=== PATIENT | female | born 2000 | race Caucasian/White ===

== ENCOUNTER 2018-12-20 11:49 | Inpatient (IN) | payer BC, MEDICAID ==
[~2018-12-20] VITALS: Ht 170.2 cm; Wt 102.0 kg
[2018-12-20 12:27] LABS: BASOPHILS % (AUTO) 0.3 % (0-1); EOSINOPHILS # (AUTO) 0.1 X10'3 (0-0.9); EOSINOPHILS % (AUTO) 0.5 % (0-6); HEMATOCRIT 46.5 % (35.0-45.0); HEMOGLOBIN 15.7 g/dl (12.0-16.0); LYMPHOCYTES # (AUTO) 2.6 X10'3 (1.1-4.8); LYMPHOCYTES % (AUTO) 17.3 % (21-51); MEAN CORPUSCULAR HEMOGLOBIN 29.5 PG (27.0-31.0); MEAN CORPUSCULAR HGB CONC 33.8 g/dL (33.0-36.5); MEAN CORPUSCULAR VOLUME 87.5 FL (78-98); MONOCYTES # (AUTO) 0.9 X10'3 (0-0.9); NEUTROPHILS # (AUTO) 11.2 X10'3 (1.8-7.7); NEUTROPHILS % (AUTO) 75.9 % (42-75); PLATELET COUNT 478 X10'3 (140-440); RED BLOOD COUNT 5.32 X10'6 (4.20-5.60); RED CELL DISTRIBUTION WIDTH 13.1 % (11.5-14.5); WHITE BLOOD COUNT 14.8 X10'3 (4.5-11.0)
[2018-12-20 12:30] LABS: CLARITY,URINE CLOUDY (Clear); COLOR,URINE YELLOW (Yellow); GLUCOSE, URINE NEGATIVE (Neg); KETONES,URINE NEGATIVE (Neg); LEUKOCYTE ESTERASE ,URINE NEGATIVE (Neg); NITRITES, URINE NEGATIVE (Neg); OCCULT BLOOD,URINE NEGATIVE (Neg); PH,URINE 7.5 (4.8-8.0); PROTEIN,URINE 30 mg/dl (Neg); URINE HCG NEGATIVE (NEG); UROBILINOGEN,URINE 0.2 E.U/dL (0.2-1.0)
[2018-12-20 12:32] LABS: UA COLLECTION TYPE CLN CATCH MIDSTREAM
[2018-12-20 12:42] LABS: ALANINE AMINOTRANSFERASE 121 U/L (12-78); ALBUMIN 4.3 G/DL (3.4-5.0); ALBUMIN/GLOBULIN RATIO 0.9 (1.1-1.5); ALKALINE PHOSPHATASE 190 IU/L (20-180); AMYLASE 48 U/L (25-115); ANION GAP 13 (8-16); ASPARTATE AMINO TRANSFERASE 51 U/L (10-37); BILIRUBIN,TOTAL 0.9 MG/DL (0.1-1.0); BLOOD UREA NITROGEN 11 MG/DL (7-18); CALCIUM 10.1 MG/DL (8.5-10.1); CHLORIDE 105 MMOL/L (99-107); CREATININE 0.92 MG/DL (0.40-0.90); GLUCOSE 108 MG/DL (70-104); LIPASE 64 U/L (73-393); SODIUM 142 MMOL/L (135-145); TOTAL CARBON DIOXIDE 23.8 MMOL/L (24-32); TOTAL PROTEIN 9.3 G/DL (6.4-8.2); eGFR 78 ML/MIN
[2018-12-20 12:47] LABS: MUCUS STRANDS MANY /LPF (Neg); SQUAMOUS EPITHELIAL CELL,UR MANY /LPF (FEW)
[2018-12-20 12:50] LABS: BACTERIA,URINE 2+ /HPF (Neg); RBC,URINE 0-2 /HPF (0-2)
[2018-12-20] MEDS ORDERED: glycopyrrolate 0.2mg/ml inj IV ONE (13:05)
[2018-12-20] MEDS ORDERED: metoclopramide 5 mg/ml inj IV ONE (13:05)
[2018-12-20] MEDS ORDERED: normal saline 1000ML IV soln IVB ONE ×2 (13:05)
[2018-12-20] MEDS ORDERED: diphenhydrAMINE 50 mg/ml inj IV ONE (13:05)
[2018-12-20] MEDS ORDERED: ketorolac trometh. 30mg/ml inj. IV ONE (14:10)
[2018-12-20] MEDS ORDERED: CefTRIAXone 2gm/D5W 50ml 50 ML IV ONE (14:10)
[2018-12-20] MEDS ORDERED: acetaminophen 325mg tablet PO PRN (14:40)
[2018-12-20] MEDS ORDERED: HYDROcodone/acetaminophen 10/325mg tab PO PRN (14:40)
[2018-12-20] MEDS ORDERED: HYDROcodone/acetaminophen 5mg/325mg tablet PO PRN (14:40)
[2018-12-20] MEDS ORDERED: mag hydrox/Alum hydrox/simeth 30ml oral suspension PO PRN (14:40)
[2018-12-20] MEDS ORDERED: morphine 2 MG/ML inj. syringe IV PRN ×2 (14:40)
[2018-12-20] MEDS ORDERED: magnesium hydroxide 30ml (MOM) UD suspension PO PRN (14:40)
[2018-12-20] MEDS ORDERED: ondansetron/PF 4mg/2ml inj IV PRN (14:40)
[2018-12-20] MEDS ORDERED: NO HOME MEDS (15:28)
[2018-12-20] MEDS: dextrose 5%-1/2 normal saline 1,000 ML IV SCH ×2 (16:14→18:23)
--- NOTE | 2018-12-20 17:21 | NUR ---
Called to get report on pt, put on hold for over 10 minutes with on answer.
--- NOTE | 2018-12-20 18:15 | NUR ---
Dr. Cristina paged to confirm diet orders. Awaiting callback.
--- NOTE | 2018-12-20 18:21 | NUR ---
Problems reprioritized. Patient report given, questions answered & plan of care reviewed with Prudence RN.
--- NOTE | 2018-12-20 18:35 | NUR ---
Patient in room [facility]. I have received report from Suellen MADDOX and had the opportunity to ask questions and assume patient care. Patient is resting and her dad is by her bedside.
[2018-12-20 18:42] VITALS: BP 121/71
[2018-12-20 20:00] VITALS: BP 121/71
[2018-12-20] MEDS: pantoprazole 40MG/NS 100ML BAG 100 ML IV SCH (21:01)
--- NOTE | 2018-12-20 21:14 | NUR ---
patient ambulating frequently Addendum: 12/20/18 at 2121 by Renée Sams RN Amended: Links added.
[2018-12-21] VITALS (9 sets, daily range): BP systolic 121–143; BP diastolic 58–83
[2018-12-21] MEDS: pantoprazole 40MG/NS 100ML BAG 100 ML IV SCH ×3 (01:44→11:00)
[2018-12-21 04:28] LABS: BASOPHILS % (AUTO) 0.3 % (0-1); EOSINOPHILS # (AUTO) 0.2 X10'3 (0-0.9); EOSINOPHILS % (AUTO) 2.2 % (0-6); HEMATOCRIT 39.8 % (35.0-45.0); HEMOGLOBIN 13.5 g/dl (12.0-16.0); LYMPHOCYTES # (AUTO) 3.7 X10'3 (1.1-4.8); LYMPHOCYTES % (AUTO) 36.7 % (21-51); MEAN CORPUSCULAR HGB CONC 33.8 g/dL (33.0-36.5); MEAN CORPUSCULAR VOLUME 88.8 FL (78-98); MEAN PLATELET VOLUME 7.4 FL (7.4-10.4); MONOCYTES # (AUTO) 0.9 X10'3 (0-0.9); MONOCYTES % (AUTO) 8.7 % (2-12); NEUTROPHILS # (AUTO) 5.3 X10'3 (1.8-7.7); NEUTROPHILS % (AUTO) 52.1 % (42-75); PLATELET COUNT 354 X10'3 (140-440); RED BLOOD COUNT 4.48 X10'6 (4.20-5.60); RED CELL DISTRIBUTION WIDTH 13.2 % (11.5-14.5); WHITE BLOOD COUNT 10.1 X10'3 (4.5-11.0)
[2018-12-21 04:58] LABS: ALANINE AMINOTRANSFERASE 79 U/L (12-78); ALBUMIN 3.4 G/DL (3.4-5.0); ALBUMIN/GLOBULIN RATIO 0.8 (1.1-1.5); ALKALINE PHOSPHATASE 141 IU/L (20-180); ANION GAP 11 (8-16); ASPARTATE AMINO TRANSFERASE 38 U/L (10-37); BILIRUBIN,TOTAL 0.8 MG/DL (0.1-1.0); BLOOD UREA NITROGEN 14 MG/DL (7-18); BUN/CREATININE RATIO 14.7 (6.6-38.0); CHLORIDE 106 MMOL/L (99-107); CREATININE 0.95 MG/DL (0.40-0.90); GLUCOSE 92 MG/DL (70-104); POTASSIUM 3.6 MMOL/L (3.5-5.1); SODIUM 141 MMOL/L (135-145); TOTAL CARBON DIOXIDE 24.3 MMOL/L (24-32); TOTAL PROTEIN 7.5 G/DL (6.4-8.2); eGFR 75 ML/MIN
[2018-12-21] MEDS: dextrose 5%-1/2 normal saline 1,000 ML IV SCH (06:00)
--- NOTE | 2018-12-21 06:30 | NUR ---
Patient in room [facility]. I have received report from Renée MADDOX and had the opportunity to ask questions and assume patient care.
--- NOTE | 2018-12-21 06:33 | NUR ---
Problems reprioritized. Patient report given, questions answered & plan of care reviewed with Suellen MADDOX.
[2018-12-21] MEDS ORDERED: pneumococcal 23-VAL P-sac vacc 25 mcg/0.5ml vial IMVAC ONE (10:00)
--- NOTE | 2018-12-21 10:48 | NUR ---
Problems reprioritized. Patient report given, questions answered & plan of care reviewed with Maris MADDOX.
[2018-12-21] MEDS ORDERED: FLU VACC QS 2019-20 (6 MOS UP) 60 MCG/0.5 ML VIAL IMVAC ONE (12:00)
[2018-12-21] MEDS ORDERED: MIDAZolam 5mg/5ml vial ONE (12:19)
[2018-12-21] MEDS ORDERED: LIDOcaine Viscous 15ml cup ONE (12:19)
[2018-12-21] MEDS ORDERED: fentaNYL/PF 50MCG/1 ML 2ML syringe ONE (12:19)
[2018-12-21] MEDS ORDERED: OMEP20TA23 PO (14:14)
--- NOTE | 2018-12-21 15:35 | NUR ---
PATIENT STABLE AND APPROPRIATE FOR DISCHARGE, EDUCATION GIVEN, IVS TAKEN OUT, ALL BELONGINGS SENT WITH PATIENT, PATIENT TAKEN TO LOBBY IN WHEEL CHAIR TO AN AWAITING CAR WHERE FRIEND WOULD TAKE PATIENT HOME
== END 2018-12-21 15:40 | disposition home or self-care (01) | DRG 241 ==
LOC: ER 11:50 → ED HOLD 14:37 → SUR 3N 17:57
PROVIDERS: ADMIT Internal Medicine; ATTEND Internal Medicine
PROC: 0DB48ZX Excision of Esophagogastric Junction, Via Natural or Artificial Opening Endoscopic, Diagnostic (ICD-10-PCS; principal; 2018-12-21)
PROC: 0DB68ZX Excision of Stomach, Via Natural or Artificial Opening Endoscopic, Diagnostic (ICD-10-PCS; 2018-12-21)
DX: K29.71 Gastritis, unspecified, with bleeding (principal); K80.62 Calculus of gallbladder and bile duct with acute cholecystitis without obstruction; K20.9 Esophagitis, unspecified; K46.9 Unspecified abdominal hernia without obstruction or gangrene; R74.0 Nonspecific elevation of levels of transaminase and lactic acid dehydrogenase [LDH]; R74.8 Abnormal levels of other serum enzymes; Z28.21 Immunization not carried out because of patient refusal
CPT/HCPCS: 36415; 43239; 74176; 76700; 80053; 81001; 81025; 82150; 83690; 84145; 85025; 85610; 87081; 96374; 96375; 99152; 99285; A4620; C9113; G0378; J0696; J1200; J2250; J2765; J3010; J3490; J7040; Q2037

== ENCOUNTER 2019-07-26 13:02 | Emergency (ER) | payer MEDICAID ==
[~2019-07-26] VITALS: Ht 170.2 cm; Wt 50.0 kg
[~2019-07-26 13:02] MED LIST: OMEP20TA23 PO
[2019-07-26 13:49] LABS: CLARITY,URINE CLEAR (Clear); COLOR,URINE STRAW (Yellow); GLUCOSE, URINE NEGATIVE (Neg); KETONES,URINE NEGATIVE (Neg); LEUKOCYTE ESTERASE ,URINE NEGATIVE (Neg); NITRITES, URINE NEGATIVE (Neg); OCCULT BLOOD,URINE NEGATIVE (Neg); PROTEIN,URINE NEGATIVE (Neg); UROBILINOGEN,URINE 0.2 E.U/dL (0.2-1.0)
[2019-07-26 13:50] LABS: UA COLLECTION TYPE CLN CATCH MIDSTREAM; URINE HCG NEGATIVE (NEG)
[2019-07-26 14:57] LABS: BASOPHILS # (AUTO) 0.1 X10'3 (0-0.2); BASOPHILS % (AUTO) 0.5 % (0-1); EOSINOPHILS # (AUTO) 0.1 X10'3 (0-0.9); EOSINOPHILS % (AUTO) 1.4 % (0-6); HEMATOCRIT 42.8 % (35.0-45.0); HEMOGLOBIN 14.4 g/dl (12.0-16.0); LYMPHOCYTES # (AUTO) 2.5 X10'3 (1.1-4.8); LYMPHOCYTES % (AUTO) 23.6 % (21-51); MEAN CORPUSCULAR HEMOGLOBIN 29.5 PG (27.0-31.0); MEAN CORPUSCULAR HGB CONC 33.7 g/dL (33.0-36.5); MEAN CORPUSCULAR VOLUME 87.6 FL (78-98); MEAN PLATELET VOLUME 7.7 FL (7.4-10.4); MONOCYTES # (AUTO) 0.6 X10'3 (0-0.9); MONOCYTES % (AUTO) 5.5 % (2-12); NEUTROPHILS # (AUTO) 7.2 X10'3 (1.8-7.7); PLATELET COUNT 388 X10'3 (140-440); RED BLOOD COUNT 4.88 X10'6 (4.20-5.60); RED CELL DISTRIBUTION WIDTH 12.8 % (11.5-14.5); WHITE BLOOD COUNT 10.4 X10'3 (4.5-11.0)
[2019-07-26 15:12] LABS: ALANINE AMINOTRANSFERASE 70 U/L (12-78); ALBUMIN 3.9 G/DL (3.4-5.0); ALKALINE PHOSPHATASE 144 IU/L (46-116); ANION GAP 6 (8-16); ASPARTATE AMINO TRANSFERASE 26 U/L (10-37); BILIRUBIN,TOTAL 0.2 MG/DL (0.1-1.0); BLOOD UREA NITROGEN 17 MG/DL (7-18); BUN/CREATININE RATIO 19.1 (6.6-38.0); CALCIUM 9.3 MG/DL (8.5-10.1); CHLORIDE 106 MMOL/L (99-107); CREATININE 0.89 MG/DL (0.40-0.90); GLUCOSE 96 MG/DL (70-104); LIPASE 240 U/L (73-393); POTASSIUM 4.2 MMOL/L (3.5-5.1); SODIUM 139 MMOL/L (135-145); TOTAL CARBON DIOXIDE 27.2 MMOL/L (24-32); TOTAL PROTEIN 7.7 G/DL (6.4-8.2); eGFR 80 ML/MIN
[2019-07-26 15:57] VITALS: BP 121/85
== END 2019-07-26 16:00 | disposition home or self-care (01) ==
LOC: ER 13:02
DX: R10.12 Left upper quadrant pain (principal); Z79.899 Other long term (current) drug therapy; Z90.49 Acquired absence of other specified parts of digestive tract
CPT/HCPCS: 36415; 80053; 81003; 81025; 83690; 85025; 99283

== ENCOUNTER 2020-01-19 16:15 | Emergency (ER) | payer MEDICAID ==
[~2020-01-19] VITALS: Ht 170.2 cm; Wt 113.0 kg
[2020-01-19 16:44] VITALS: BP 129/73
[2020-01-19 19:34] LABS: BASOPHILS # (AUTO) 0.1 X10'3 (0-0.2); BASOPHILS % (AUTO) 0.5 % (0-1); EOSINOPHILS # (AUTO) 0.3 X10'3 (0-0.9); EOSINOPHILS % (AUTO) 2.3 % (0-6); HEMATOCRIT 45.1 % (35.0-45.0); HEMOGLOBIN 15.1 g/dl (12.0-16.0); LYMPHOCYTES % (AUTO) 27.4 % (21-51); MEAN CORPUSCULAR HEMOGLOBIN 29.1 PG (27.0-31.0); MEAN CORPUSCULAR HGB CONC 33.5 g/dL (33.0-36.5); MEAN CORPUSCULAR VOLUME 86.8 FL (78-98); MEAN PLATELET VOLUME 6.8 FL (7.4-10.4); MONOCYTES # (AUTO) 0.7 X10'3 (0-0.9); MONOCYTES % (AUTO) 6.3 % (2-12); NEUTROPHILS # (AUTO) 6.9 X10'3 (1.8-7.7); NEUTROPHILS % (AUTO) 63.5 % (42-75); PLATELET COUNT 489 X10'3 (140-440); RED CELL DISTRIBUTION WIDTH 12.6 % (11.5-14.5); WHITE BLOOD COUNT 10.9 X10'3 (4.5-11.0)
[2020-01-19 19:44] LABS: PARTIAL THROMBOPLASTIN TIME 29 SECONDS (22-32)
[2020-01-19 20:26] LABS: ALANINE AMINOTRANSFERASE 35 U/L (12-78); ALBUMIN 3.8 G/DL (3.4-5.0); ALBUMIN/GLOBULIN RATIO 0.7 (1.1-1.5); ALKALINE PHOSPHATASE 142 IU/L (46-116); ANION GAP 12 (8-16); ASPARTATE AMINO TRANSFERASE 19 U/L (10-37); BILIRUBIN,TOTAL 0.5 MG/DL (0.1-1.0); BLOOD UREA NITROGEN 14 MG/DL (7-18); BUN/CREATININE RATIO 15.4 (6.6-38.0); CALCIUM 10.2 MG/DL (8.5-10.1); CHLORIDE 103 MMOL/L (99-107); CREATININE 0.91 MG/DL (0.40-0.90); GLUCOSE 96 MG/DL (70-104); SODIUM 140 MMOL/L (135-145); TOTAL CARBON DIOXIDE 25.3 MMOL/L (24-32); TOTAL PROTEIN 8.9 G/DL (6.4-8.2); eGFR 78 ML/MIN
[2020-01-19] MEDS ORDERED: prednisone 10mg tablet PO SCH (21:00)
[2020-01-19] MEDS ORDERED: predniSONE 20 mg tablet PO ONE (21:00)
[2020-01-19] MEDS ORDERED: PRED20TA PO (21:10)
== END 2020-01-19 21:27 | disposition home or self-care (01) ==
LOC: ER 16:16
DX: I77.6 Arteritis, unspecified (principal); F17.200 Nicotine dependence, unspecified, uncomplicated; F12.10 Cannabis abuse, uncomplicated
CPT/HCPCS: 36415; 80053; 85025; 85610; 85651; 85730; 99283; J7512

== ENCOUNTER 2020-05-09 18:39 | Emergency (ER) | payer MEDICAID ==
[~2020-05-09] VITALS: Ht 170.2 cm; Wt 111.0 kg
[2020-05-09 21:06] LABS: BASOPHILS % (AUTO) 0.3 % (0-1); EOSINOPHILS # (AUTO) 0.2 X10'3 (0-0.9); EOSINOPHILS % (AUTO) 1.3 % (0-6); HEMATOCRIT 44.6 % (35.0-45.0); LYMPHOCYTES # (AUTO) 2.9 X10'3 (1.1-4.8); MEAN CORPUSCULAR HEMOGLOBIN 29.7 PG (27.0-31.0); MEAN CORPUSCULAR HGB CONC 33.8 g/dL (33.0-36.5); MEAN CORPUSCULAR VOLUME 87.9 FL (78-98); MEAN PLATELET VOLUME 7.3 FL (7.4-10.4); MONOCYTES % (AUTO) 8.4 % (2-12); NEUTROPHILS # (AUTO) 7.5 X10'3 (1.8-7.7); PLATELET COUNT 413 X10'3 (140-440); RED BLOOD COUNT 5.07 X10'6 (4.20-5.60); RED CELL DISTRIBUTION WIDTH 12.9 % (11.5-14.5); WHITE BLOOD COUNT 11.5 X10'3 (4.5-11.0)
[2020-05-09 21:07] LABS: ALANINE AMINOTRANSFERASE 153 U/L (12-78); ALBUMIN 3.9 G/DL (3.4-5.0); ALKALINE PHOSPHATASE 166 IU/L (46-116); ANION GAP 7 (8-16); ASPARTATE AMINO TRANSFERASE 93 U/L (10-37); BILIRUBIN,TOTAL 0.5 MG/DL (0.1-1.0); BLOOD UREA NITROGEN 14 MG/DL (7-18); BUN/CREATININE RATIO 16.9 (6.6-38.0); CALCIUM 9.2 MG/DL (8.5-10.1); CHLORIDE 103 MMOL/L (99-107); CREATININE 0.83 MG/DL (0.40-0.90); GLUCOSE 94 MG/DL (70-104); LIPASE 112 U/L (73-393); POTASSIUM 3.4 MMOL/L (3.5-5.1); SODIUM 140 MMOL/L (135-145); TOTAL CARBON DIOXIDE 30.4 MMOL/L (24-32); TOTAL PROTEIN 7.9 G/DL (6.4-8.2); eGFR 86 ML/MIN
[2020-05-09 21:37] LABS: URINE HCG NEGATIVE (NEG)
[2020-05-09 21:38] LABS: CLARITY,URINE CLEAR (Clear); COLOR,URINE AMBER (Yellow); GLUCOSE, URINE NEGATIVE (Neg); KETONES,URINE 15 mg/dl (Neg); LEUKOCYTE ESTERASE ,URINE NEGATIVE (Neg); NITRITES, URINE NEGATIVE (Neg); OCCULT BLOOD,URINE NEGATIVE (Neg); PROTEIN,URINE TRACE mg/dl (Neg)
[2020-05-09 21:39] LABS: UA COLLECTION TYPE CLN CATCH MIDSTREAM
[2020-05-09] MEDS ORDERED: iohexol 300mg/ml 100ml inj. ONE (21:40)
[2020-05-09 21:45] LABS: BACTERIA,URINE NONE SEEN /HPF (Neg); MUCUS STRANDS MANY /LPF (Neg); RBC,URINE NONE SEEN /HPF (0-2); SQUAMOUS EPITHELIAL CELL,UR MODERATE /LPF (FEW); WBC,URINE 0-4 /HPF (0-4)
--- NOTE | 2020-05-09 21:59 | NUR ---
TO CT VIA WC
[2020-05-09 23:18] VITALS: BP 121/74
== END 2020-05-09 23:22 | disposition home or self-care (01) ==
LOC: ER 18:39
DX: K29.00 Acute gastritis without bleeding (principal); F12.90 Cannabis use, unspecified, uncomplicated; Z87.19 Personal history of other diseases of the digestive system; Z79.899 Other long term (current) drug therapy
CPT/HCPCS: 36415; 74177; 80053; 81001; 81025; 83690; 85025; 99285; Q9967

== ENCOUNTER 2021-06-15 00:24 | Emergency (ER) | payer MEDICAID ==
[~2021-06-15] VITALS: Ht 170.2 cm; Wt 101.9 kg
[2021-06-15 02:15] LABS: ALANINE AMINOTRANSFERASE 72 U/L (12-78); ALBUMIN 3.4 G/DL (3.4-5.0); ALBUMIN/GLOBULIN RATIO 0.7 (1.1-1.5); ALKALINE PHOSPHATASE 148 IU/L (46-116); ANION GAP 14 (8-16); ASPARTATE AMINO TRANSFERASE 52 U/L (10-37); BILIRUBIN,TOTAL 0.4 MG/DL (0.1-1.0); BLOOD UREA NITROGEN 9 MG/DL (7-18); BUN/CREATININE RATIO 10.5 (6.6-38.0); CHLORIDE 101 MMOL/L (99-107); CREATININE 0.86 MG/DL (0.40-0.90); GLUCOSE 107 MG/DL (70-104); POTASSIUM 3.8 MMOL/L (3.5-5.1); SODIUM 140 MMOL/L (135-145); TOTAL CARBON DIOXIDE 25.3 MMOL/L (24-32); TOTAL PROTEIN 8.1 G/DL (6.4-8.2); eGFR 82 ML/MIN
[2021-06-15 02:19] LABS: BASOPHILS % (AUTO) 0.4 % (0-1); EOSINOPHILS # (AUTO) 0.3 X10'3 (0-0.9); EOSINOPHILS % (AUTO) 2.7 % (0-6); HEMATOCRIT 43.1 % (35.0-45.0); HEMOGLOBIN 14.6 g/dl (12.0-16.0); LYMPHOCYTES % (AUTO) 27.5 % (21-51); MEAN CORPUSCULAR VOLUME 88.4 FL (78-98); MEAN PLATELET VOLUME 7.2 FL (7.4-10.4); MONOCYTES % (AUTO) 8.9 % (2-12); NEUTROPHILS # (AUTO) 6.7 X10'3 (1.8-7.7); NEUTROPHILS % (AUTO) 60.5 % (42-75); PLATELET COUNT 447 X10'3 (140-440); RED BLOOD COUNT 4.88 X10'6 (4.20-5.60); RED CELL DISTRIBUTION WIDTH 12.8 % (11.5-14.5)
[2021-06-15 03:58] LABS: CLARITY,URINE SLIGHTLY CLOUDY (Clear); GLUCOSE, URINE NEGATIVE (Neg); KETONES,URINE TRACE mg/dl (Neg); LEUKOCYTE ESTERASE ,URINE SMALL (Neg); NITRITES, URINE NEGATIVE (Neg); OCCULT BLOOD,URINE SMALL (Neg); PH,URINE 5.5 (4.8-8.0); PROTEIN,URINE 100 mg/dl (Neg)
[2021-06-15 04:00] LABS: URINE HCG NEGATIVE (NEG)
[2021-06-15 04:07] LABS: COLOR,URINE DARK YELLOW (Yellow); UA COLLECTION TYPE CLN CATCH MIDSTREAM
[2021-06-15 04:10] LABS: WBC,URINE 30-50 /HPF (0-4)
[2021-06-15 04:11] LABS: BACTERIA,URINE 2+ /HPF (Neg); MUCUS STRANDS FEW /LPF (Neg); SQUAMOUS EPITHELIAL CELL,UR FEW /LPF (FEW)
[2021-06-15 04:12] LABS: HYALINE CASTS 0-3 /LPF (NEGATIVE)
[2021-06-15] MEDS ORDERED: cephalexin 250mg capsule PO ONE (04:30)
[2021-06-15] MEDS ORDERED: CEPH250T PO (04:31)
[2021-06-15 04:44] VITALS: BP 132/64
== END 2021-06-15 04:47 | disposition home or self-care (01) ==
LOC: ER 00:25
DX: N39.0 Urinary tract infection, site not specified (principal); M54.2 Cervicalgia; R59.0 Localized enlarged lymph nodes; F12.90 Cannabis use, unspecified, uncomplicated; Z87.448 Personal history of other diseases of urinary system; Z87.19 Personal history of other diseases of the digestive system; Z79.899 Other long term (current) drug therapy
CPT/HCPCS: 36415; 80053; 81001; 81025; 85025; 87077; 87088; 87186; 99283

== ENCOUNTER 2021-10-21 16:17 | Emergency (ER) | payer MEDICAID ==
[~2021-10-21] VITALS: Ht 170.2 cm; Wt 100.0 kg
[2021-10-21 16:36] VITALS: BP 123/84
[2021-10-21] MEDS ORDERED: KEN0.1O TP (16:44)
[2021-10-21] MEDS ORDERED: CEPH-585 PO (16:44)
== END 2021-10-21 16:56 | disposition home or self-care (01) ==
LOC: ER 16:17
DX: L25.9 Unspecified contact dermatitis, unspecified cause (principal); L03.115 Cellulitis of right lower limb; K52.9 Noninfective gastroenteritis and colitis, unspecified; F12.90 Cannabis use, unspecified, uncomplicated
CPT/HCPCS: 99283

== ENCOUNTER 2022-09-24 13:31 | Emergency (ER) | payer MEDICAID ==
[~2022-09-24] VITALS: Ht 170.2 cm; Wt 111.0 kg
[~2022-09-24 13:31] MED LIST changes: +CEPH-585 PO
[2022-09-24 13:46] VITALS: BP 138/93; PULSE 100; O2SAT 96
[2022-09-24 14:03] VITALS: RESP 16
[2022-09-24 15:06] LABS: BASOPHILS % (AUTO) 0.4 % (0-1); EOSINOPHILS # (AUTO) 0.1 X10'3 (0-0.9); EOSINOPHILS % (AUTO) 0.7 % (0-6); HEMATOCRIT 48.1 % (35.0-45.0); HEMOGLOBIN 16.1 g/dl (12.0-16.0); LYMPHOCYTES # (AUTO) 1.3 X10'3 (1.1-4.8); LYMPHOCYTES % (AUTO) 11.5 % (21-51); MEAN CORPUSCULAR HEMOGLOBIN 29.9 PG (27.0-31.0); MEAN CORPUSCULAR HGB CONC 33.5 g/dL (33.0-36.5); MEAN CORPUSCULAR VOLUME 89.3 FL (78-98); MEAN PLATELET VOLUME 6.9 FL (7.4-10.4); MONOCYTES # (AUTO) 0.5 X10'3 (0-0.9); MONOCYTES % (AUTO) 4.3 % (2-12); NEUTROPHILS # (AUTO) 9.5 X10'3 (1.8-7.7); NEUTROPHILS % (AUTO) 83.1 % (42-75); PLATELET COUNT 355 X10'3 (140-440); RED BLOOD COUNT 5.39 X10'6 (4.20-5.60); RED CELL DISTRIBUTION WIDTH 14.4 % (11.5-14.5); WHITE BLOOD COUNT 11.4 X10'3 (4.5-11.0)
[2022-09-24 15:15] LABS: ALANINE AMINOTRANSFERASE 132 U/L (12-78); ALBUMIN 3.3 G/DL (3.4-5.0); ALBUMIN/GLOBULIN RATIO 0.8 (1.1-1.5); ALKALINE PHOSPHATASE 137 IU/L (46-116); ANION GAP 10 (8-16); ASPARTATE AMINO TRANSFERASE 41 U/L (10-37); BILIRUBIN,TOTAL 0.9 MG/DL (0.1-1.0); BLOOD UREA NITROGEN 9 MG/DL (7-18); BUN/CREATININE RATIO 11.3 (10.0-20.0); CHLORIDE 103 MMOL/L (99-107); GLUCOSE 121 MG/DL (70-104); LIPASE 54 U/L (73-393); POTASSIUM 3.4 MMOL/L (3.5-5.1); SODIUM 140 MMOL/L (135-145); TOTAL CARBON DIOXIDE 26.9 MMOL/L (24-32); TOTAL PROTEIN 7.2 G/DL (6.4-8.2); eGFR 88 ML/MIN
[2022-09-24] MEDS ORDERED: haloperidol lactate 5mg/ml inj IM ONE (15:35)
[2022-09-24] MEDS ORDERED: diphenhydrAMINE 50 mg/ml inj IM ONE (15:35)
[2022-09-24] MEDS ORDERED: ondansetron/PF 4mg/2ml inj IV ONE (15:35)
[2022-09-24] MEDS ORDERED: ondansetron 4mg rapidly disintigrating tab PO ONE (16:05)
== END 2022-09-24 16:19 | disposition home or self-care (01) ==
LOC: ER 13:32
DX: R11.2 Nausea with vomiting, unspecified (principal); R10.13 Epigastric pain; R10.10 Upper abdominal pain, unspecified; F12.20 Cannabis dependence, uncomplicated; F12.90 Cannabis use, unspecified, uncomplicated; Z79.2 Long term (current) use of antibiotics; Z79.899 Other long term (current) drug therapy
CPT/HCPCS: 36415; 80053; 83690; 85025; 96372; 99284; J1200; J1630

== ENCOUNTER 2022-10-15 01:43 | Emergency (ER) | payer MEDICAID ==
[~2022-10-15] VITALS: Ht 170.2 cm; Wt 109.1 kg
[2022-10-15 01:47] VITALS: BP 128/88; PULSE 90; RESP 22; TEMP 98.2; O2SAT 98
== END 2022-10-15 02:14 ==
LOC: ER 01:44
DX: Z02.89 Encounter for other administrative examinations (principal); F10.129 Alcohol abuse with intoxication, unspecified; F12.90 Cannabis use, unspecified, uncomplicated; Z72.89 Other problems related to lifestyle; Z79.899 Other long term (current) drug therapy; Y90.9 Presence of alcohol in blood, level not specified
CPT/HCPCS: 99283